=== PATIENT | female | born 1990 | race Caucasian/White ===

== ENCOUNTER 2016-11-06 18:17 | Emergency (ER) | payer MEDICAID ==
[~2016-11-06] VITALS: Ht 157.5 cm; Wt 45.4 kg
[2016-11-06 18:27] VITALS: BP 111/70
--- NOTE | 2016-11-06 21:02 | NUR ---
PATIENT LEFT WITHOUT BEING SEEN BY DR. NEELY. NO FURTHER CARE PROVIDED FOR PATIENT.
== END 2016-11-06 21:02 | disposition left against medical advice (07) ==
LOC: MED 18:17
DX: R10.2 Pelvic and perineal pain (principal); Z53.21 Procedure and treatment not carried out due to patient leaving prior to being seen by health care provider